=== PATIENT | female | born 1980 | race Caucasian/White ===

== ENCOUNTER 2020-06-09 13:48 | Emergency (ER) | payer BC, MEDICAID ==
[~2020-06-09] VITALS: Ht 162.6 cm; Wt 86.4 kg
[2020-06-09 14:01] VITALS: BP 139/104
[2020-06-09] MEDS ORDERED: dexamethasone sod phosphate 10mg/ml inj IM STA (14:21)
[2020-06-09] MEDS ORDERED: ALBU6.7H9 INH (14:41)
[2020-06-09] MEDS ORDERED: DEXA4TAB67 PO (14:41)
== END 2020-06-09 14:56 | disposition home or self-care (01) ==
LOC: ER 13:49
DX: R51.9 Headache, unspecified (principal); R42 Dizziness and giddiness; J02.9 Acute pharyngitis, unspecified; Z20.828 Contact with and (suspected) exposure to other viral communicable diseases; Z79.899 Other long term (current) drug therapy
CPT/HCPCS: 36415; 96372; 99283; J1100